=== PATIENT | female | born 1960 | race Caucasian/White ===

== ENCOUNTER → 2017-09-22 09:59 | Outpatient (CLI) | payer MEDICARE, BC ==
[~2017-09-22 09:59] MED LIST: BAYER CHEWABLE81 MG PO; COREG6.25 MG PO; LIPITOR80 MG PO
[2017-10-08 00:36] VITALS: BMI 27.9
== END | disposition home or self-care (01) ==
LOC: D.CT 09:59
DX: R05 Cough (principal)

== ENCOUNTER → 2017-09-25 13:37 | Outpatient (CLI) | payer MEDICARE, BC ==
[2017-10-08 00:36] VITALS: BMI 27.9
== END | disposition home or self-care (01) ==
LOC: D.CT 13:37
DX: R05 Cough (principal)

== ENCOUNTER 2017-10-07 07:09 | Inpatient (IN) | payer MEDICARE, BC ==
[~2017-10-07] VITALS: Ht 180.3 cm; Wt 90.9 kg
[2017-10-07] MEDS ORDERED: COREG6.25 MG PO ×2 (07:40→07:42)
[2017-10-07] MEDS ORDERED: LIPITOR80 MG PO (07:41)
[2017-10-07] MEDS ORDERED: BAYER CHEWABLE81 MG PO (07:41)
[2017-10-07 08:00] VITALS: BP 77/44; BMI 27.6
[2017-10-07 08:25] LABS: BASOPHILS 0.5 % (0-2); EOSINOPHILS 1.6 % (0-7); HEMATOCRIT 41.4 % (36.0-48.0); HEMOGLOBIN 13.2 g/dL (12-16); IMMATURE GRANULOCYTES 0.2 % (0-5); LYMPHOCYTES 37.1 % (15-50); MCH 27.4 pg (26.0-34.0); MCHC 31.9 g/dL (31.0-37.0); MCV 85.9 fL (80.0-100.0); MONOCYTES 4.5 % (2-11); NEUTROPHILS 56.1 % (40-80); PLATELET COUNT 245 10x3/uL (130-400); RBC 4.82 10x6/uL (4.00-5.40); RDW 14.3 % (11.5-14.5); WBC 8.2 10x3/uL (4.8-10.8)
[2017-10-07 08:38] LABS: ANION GAP 10.4 mmol/L (8-16); CALCIUM 8.8 mg/dL (8.5-10.1); CARBON DIOXIDE 25.7 mmol/L (21.0-32.0); CREATININE - SERUM 0.9 mg/dL (0.6-1.3); POTASSIUM - SERUM 4.1 mmol/L (3.5-5.1)
[2017-10-07 08:48] LABS: APTT 27.5 SECONDS (22.8-39.4); INR 1.01 (0.85-1.17); PROTIME 12.9 SECONDS (11.6-15.0)
[2017-10-07 20:00] VITALS: BP 102/48
[2017-10-08] VITALS: BP 103/50
[2017-10-08 00:36] VITALS: BP 102/48; Ht 180.3 cm; Wt 90.9 kg
[2017-10-08 04:00] VITALS: BP 129/62
[2017-10-08 07:56] LABS: HEMATOCRIT 38.1 % (36.0-48.0); HEMOGLOBIN 12.2 g/dL (12-16); LYMPHOCYTES 36.9 % (15-50); MCH 27.1 pg (26.0-34.0); MCV 84.5 fL (80.0-100.0); MEAN PLATELET VOLUME 10.6 fL (7.4-10.4); NEUTROPHILS 56.3 % (40-80); RBC 4.51 10x6/uL (4.00-5.40); RDW 14.1 % (11.5-14.5); WBC 8.2 10x3/uL (4.8-10.8)
[2017-10-08 08:02] LABS: PLATELET COUNT 188 10x3/uL (130-400)
[2017-10-08 08:07] LABS: APTT 27.2 SECONDS (22.8-39.4)
[2017-10-08 08:08] LABS: INR 1.06 (0.85-1.17); PROTIME 13.4 SECONDS (11.6-15.0)
[2017-10-08 08:24] LABS: ALBUMIN 3.1 g/dL (3.4-5.0); ALKALINE PHOSPHATASE 88 U/L (46-116); ALT (SGPT) 20 U/L (10-68); CALC OSMOLALITY 281 mosm/kg (275-300); CALCIUM 8.5 mg/dL (8.5-10.1); CARBON DIOXIDE 26.1 mmol/L (21.0-32.0); CHLORIDE - SERUM 107 mmol/L (98-107); CREATININE - SERUM 0.8 mg/dL (0.6-1.3); GLUCOSE 98 mg/dL (74-106); PHOSPHOROUS 3.2 mg/dL (2.5-4.9); POTASSIUM - SERUM 4.3 mmol/L (3.5-5.1); PROTEIN - SERUM 6.4 g/dL (6.4-8.2); SODIUM 141 mmol/L (136-145); UREA NITROGEN 14 mg/dL (7-18); eGFR NON AFRICAN AMERICAN 79 mL/min (90-120)
[2017-10-08 12:44] VITALS: BP 105/48
== END 2017-10-08 16:34 | disposition home or self-care (01) | DRG 201 ==
LOC: D.OPS 07:09 → D.CT 09:00 → D.OPS 09:00 → D.MS 19:41 → D.OPS 19:42 → D.MS 19:42
PROVIDERS: Specialist
PROC: 0W9930Z Drainage of Right Pleural Cavity with Drainage Device, Percutaneous Approach (ICD-10-PCS; 2017-10-07)
PROC: 0BBD3ZX Excision of Right Middle Lung Lobe, Percutaneous Approach, Diagnostic (ICD-10-PCS; principal; 2017-10-07 09:00)
DX: J95.811 Postprocedural pneumothorax (principal); R91.8 Other nonspecific abnormal finding of lung field; Y84.8 Other medical procedures as the cause of abnormal reaction of the patient, or of later complication, without mention of misadventure at the time of the procedure

== ENCOUNTER → 2017-10-20 13:15 | Outpatient (CLI) | payer MEDICARE, BC ==
[2017-10-08 00:36] VITALS: BMI 27.9
== END | disposition home or self-care (01) ==
LOC: D.MRI 13:15
DX: C34.11 Malignant neoplasm of upper lobe, right bronchus or lung (principal)

== ENCOUNTER → 2017-10-23 07:53 | Outpatient (CLI) | payer MEDICARE, BC ==
[2017-10-08 00:36] VITALS: BMI 27.9
== END | disposition home or self-care (01) ==
LOC: D.RT 07:53
DX: C34.11 Malignant neoplasm of upper lobe, right bronchus or lung (principal)

== ENCOUNTER → 2017-11-05 17:49 | Outpatient (CLI) | payer MEDICARE, BC ==
[2017-10-08 00:36] VITALS: BMI 27.9
== END | disposition home or self-care (01) ==
LOC: D.SP 10-07 09:00 → D.MAMMO 10-07 16:00
DX: Z12.31 Encounter for screening mammogram for malignant neoplasm of breast (principal)

== ENCOUNTER → 2017-11-12 12:13 | Outpatient (CLI) | payer MEDICARE, BC ==
[2017-10-08 00:36] VITALS: BMI 27.9
[~2017-11-12 12:13] MED LIST changes: +PLAVIX75 MG PO
== END | disposition home or self-care (01) ==
LOC: D.CT 10-30 10:00
DX: C34.11 Malignant neoplasm of upper lobe, right bronchus or lung (principal)

== ENCOUNTER 2017-11-16 05:10 | Inpatient (IN) | payer MEDICARE, BC ==
[2017-11-13 09:24] LABS: HEMOGLOBIN 12.9 g/dL (12-16); MCH 27.1 pg (26.0-34.0); MCHC 31.5 g/dL (31.0-37.0); MCV 86.1 fL (80.0-100.0); MEAN PLATELET VOLUME 11.7 fL (7.4-10.4); RBC 4.76 10x6/uL (4.00-5.40); RDW 14.7 % (11.5-14.5)
[2017-11-13 09:35] LABS: INR 0.97 (0.85-1.17); PROTIME 12.5 SECONDS (11.6-15.0)
[2017-11-13 09:40] LABS: ALBUMIN 3.6 g/dL (3.4-5.0); ANION GAP 13.2 mmol/L (8-16); BILIRUBIN - TOTAL 0.38 mg/dL (0.2-1.3); CALCIUM 8.6 mg/dL (8.5-10.1); CARBON DIOXIDE 26.4 mmol/L (21.0-32.0); CREATININE - SERUM 0.9 mg/dL (0.6-1.3); POTASSIUM - SERUM 3.6 mmol/L (3.5-5.1); PROTEIN - SERUM 7.2 g/dL (6.4-8.2)
[2017-11-13 10:26] LABS: APPEARANCE HAZY (CLEAR); BILIRUBIN NEGATIVE (NEGATIVE); COLOR YELLOW (YELLOW); GLUCOSE NEGATIVE (NEGATIVE); KETONE NEGATIVE (NEGATIVE); NITRITE NEGATIVE (NEGATIVE); PROTEIN NEGATIVE (NEGATIVE); SPECIFIC GRAVITY 1.015 (1.005-1.020); UROBILINOGEN NORMAL (NORMAL)
[2017-11-13 10:27] LABS: BACTERIA MODERATE /hpf (NONE SEEN); MUCUS <1+ /lpf (NONE SEEN); WHITE CELLS - URINE 0-5 /hpf (0-5)
[2017-11-16] VITALS (43 sets, daily range): BP systolic 90–120; BP diastolic 43–58; BMI 27.9
--- NOTE | ~2017-11-16 | HP ---
PATIENT: BRAD PAZ MEDICAL RECORD: [id number] ACCOUNT: [id number] LOCATION:[facility] : 64 ADMISSION DATE: 11/16/17 HISTORY AND PHYSICAL EXAMINATION NameBRAD PAZ (57yo, F) ID# [id number]. Date/Time11/05/2017 01:28IXQIB1962Service Dept.NPP_[facility] ClinicProviderEDSANDY STREETER MDInsuranceMed Primary: [place] ([place]) Insurance # : [id number] Referring Provider Name : DIXIE ABDALLA Employer Name : RETIRED Med Secondary: [place] (MEDICARE SUPPLEMENT) Insurance # : [id number] Employer Name : RETIRED Prescription: CMX - Member is eligible. Prescription: ID [employer] MEDICA[employer] ADMINISTRATION - Member is eligible. Chief Complaint Followup: Solitary nodule of lung S/P SUPRARENAL CONTROL OF AORTA & AORTIC ENDARTERECTOMY, AORTO BYFEMORAL RECONSTRUCTION OF AORTA 12/22/2000 RTC PET RESULTS, PREOP FOR PULM. RESECTION Patient's Care Team Referring Provider (): D[facility]ALL[facility], [address] [place] [id number], , Referring Provider: SONG SY MD: [address], [place] [address], , Primary Care Provider: DIXIE ABDALLA DO: [address] [place] [address], , Patient's Pharmacies [facility] (ERX): [facility] [address], , Vitals 11/05/2017 01:40 pm BP:138/86 sitting R armHR:68Ht:5 ft 11 inWt:200 lbs BMI:27.9Allergies Reviewed Allergies IODINATED CONTRAST- ORAL AND IV DYEPENICILLINSMedications Reviewed Medications Aspir-81 81 mg tablet,delayed release Take 1 tablet(s) every day by oral route.10/27/17 enteredKatadam Wilsonatorvastatin 80 mg /12/18 filledCaremarkcarvedilol 6.25 mg mdgaix90/08/18 filledCaremarkcephALEXin 500 mg capsule start filledKatadam Rodriguezclopidogrel 75 mg vhpuyc28/12/18 filledCaremarkProblems Reviewed Problems Solitary nodule of lung - Onset: 10/27/2017 Family History Reviewed Family History Maternal Grandmother- Malignant neoplastic diseaseSocial History Reviewed Social History Surgical History Reviewed Surgical History aorto bifem 2000 HISTORY AND PHYSICAL [id number] BRAD PAZ double coronary bypass 2007 appendix 2001 coronary artery stent 2016 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 HPI Lungs/Pleura Mass or Nodule Reported by patient. Symptoms: prior chest x-ray: normal film; no hoarseness; no fever Severity: improving Context: non-smoker right upper lobe carcinoma ROS Patient reports no fever, no night sweats, no significant weight gain, no significant weight loss, and no exercise intolerance. She reports no dry ey es, no irritation, and no vision change. She reports no difficulty hearing and no ear pain. She reports no frequent nosebleeds and no nose/sinus problems. She reports no sore throat, no bleeding gums, no snoring, no dry mouth, no mouth ulcers, no oral abn o rmalities, and no teeth problems. She reports no jugular vein distension and no swollen glands. She reports no chest pain, no arm pain on exertion, no shortness of breath when walking, no shortness of breath when lying down, no palpitations, and no known h eart murmur. She reports no cough, no wheezing, no shortness of breath, and no coughing up blood. She reports no abdominal pain, no vomiting, normal appetite, no diarrhea, not vomiting blood, no nausea, and no constipation. She reports no incontinence, no difficulty urinating, no hematuria, and no increased frequency. She reports no muscle aches, no muscle weakness, no arthralgias/joint pain, no back pain, and no swelling in the extremities. She reports no abnormal mole, no jaundice, and no rashes. She rep o rts no loss of consciousness, no weakness, no numbness, no seizures, no dizziness, and no headaches. She reports no depression, no sleep disturbances, feeling safe in relationship, and no alcohol abuse. She reports no fatigue. She reports no swollen gland s and no bruising. She reports no runny nose, no sinus pressure, no itching, no hives, and no frequent sneezing. ROS as noted in the HPI Physical Exam Patient is a 57-year-old female. Constitutional: General Appearance well nourished and developed and healthy-appearing. Level of Distress NAD. Ambulation ambulating normally. Cardiovascular: Apical Impulse not displaced or no thrill. Heart Auscultation HISTORY AND PHYSICAL [id number] EUDY,BRAD JOANIE normal s1 and s2; no murmurs, rubs, or gallops; and RRR. Arterial Pulses no abdominal aor ta bruits, femoral bruits, or popliteal bruits and 2+ bilateral, carotid 2+ bilateral, femoral 2+ bilateral, popliteal 2+ bilateral, and dorsalis pedis 2+ bilateral. Edema no edema or varicosities. Lungs: Repiratory Effort no dyspnea. Percussion no hyperr esonance or dullness or flatness. Auscultation no wheezing, rhonchi, or rales / crackles and breathing sounds normal, good air movement, and CTA except as noted. Abdomen: Bowl Sounds normal. Inspection and Palpation no tenderness, guarding, masses, or rebound tenderness and soft and non-distended. Liver non-tender and no hepatomegaly. Spleen non-tender and no splenomegaly. Hernia none palpable. Musculoskeletal System: Gait And Stance normal gait and stance. Digits and Nails normal nails and no cyanosis. Neurologic: Cranial Nerves grossly intact. Reflexes DTRs 2+ bilaterally throughout. Sensation grossly intact. Lymph Nodes: Lymph Nodes no cervical LAD, supraclavicular LAD, axillary LAD, or inguinal LAD. Eyes: Lids and Conjunctivae no discharge or pallor and non-injected. Pupils PERRLA. Cornea grossly intact. EOM EOMI. Lens clear. Sclera non-icteric. Neck: Neck no masses, enlarged lymph nodes, or carotid bruits and supple and trachea midline. Thyroid no enlargement or nodules and non-tender. Skin: Inspection and Palpation no rash, lesions, ulcers, jaundice, or abnormal nevi. Assessment / Plan right upper lobe lung mass no adenopathy 1. Solitary nodule of lung R91.1: Solitary pulmonary nodule Discussion Notes no adenopathy PET scan no adenopathy Right upper lobe lesion Discussed her disease process with her in detail as well as the alternative methods of treatment. We discussed pulmonary resection of her right lung including the expected benefi ts and risk which include bleeding, infection, stroke, , and the imponderables. She understands all the above and wishes to proceed with planned surgery. CATALINO STREETER MD at 1311 CC: [id number] DICTATION DATE: 11/05/17 1340 DISTRIBUTION CENTER MANAGER: CAROLINE 11/06/17 1237 PRE [address] [place] [id number] [place] [id number]
--- NOTE | ~2017-11-16 | OP ---
PATIENT NAME: BRAD PAZ MEDICAL RECORD: [id number] :64 [facility] AD[facility] DATE:11/16/17 SURGEON: CESAR HENDERSON MD DATE OF OPERATION: 11/16/2017 SURGEON: Cesar Henderson MD ANESTHESIA: General endotracheal, Rony Duron MD OPERATIONS PERFORMED: 1. Right upper lobe resection. 2. Right radical mediastinal lymphadenectomy. 3. Flexible fiberoptic bronchoscopy. PREOPERATIVE DIAGNOSIS: Non-small cell carcinoma, right upper lobe. POSTOPERATIVE DIAGNOSIS: Non-small cell carcinoma, right upper lobe. INDICATION FOR OPERATION: Carcinoma of right upper lobe. FINDINGS OF THE OPERATION: Carcinoma, right upper lobe, in the fissure at the confluence of minor and major fissure. The closest margin was 3 cm. This was between the upper lobe and fissure of the middle lobe. SPECIMENS: 1. Adhesions, right middle lobe to anterior mediastinum. 2. Adhesions, right upper lobe to anterior mediastinum. 3. Level 10 lymph node. 4. Level 4 lymph node. 5. Right upper lobe. 6. Level 7 lymph node. ESTIMATED BLOOD LOSS: 150 mL. After informed consent, adequate preoperative medication, and evaluation, the patient was brought to the operating room and placed on the table in supine position. After induction of general endotracheal anesthesia, application of appropriate monitoring devices, placement of a double lumen tube, and flexible fiberoptic bronchoscopy, the patient was prepped and draped in sterile field. A small posterolateral thoracotomy incision was made and dissection was carried down to the fascia. Hemostasis was maintained with electrocautery. The latissimus dorsi was divided. The serratus was retracted anteriorly and the fifth interspace was opened. The lung was deflated. There were dense adhesions between middle lobe and diaphragm as well as middle lobe to anterior mediastinum, and upper lobe to anterior mediastinum and posterior chest. These were all lysed with the Harmonic scalpel and hemostasis was assured. A biopsy was taken from the middle lobe to the adhesions to the diaphragm and a biopsy was taken of the upper lobe with adhesions to the mediastinum. Attention was then turned towards the hilum. A level 10 node was removed for exposure. The upper lobe bronchus was identified. The pulmonary arteries to the upper lobe were identified with sharp and blunt dissection. The anterior dissection was then carried out and the veins to the upper lobe were surrounded with a vessel OPERATIVE REPORT [id number] BRAD PAZ. After identifying all structures, the posterior fissure was developed with an Endo-VAL stapler. The pulmonary arteries to the upper lobe were then divided with an Endo-VAL stapler as well as the veins to the upper lobe. Then, utilizing sharp and blunt dissection, the upper lobe bronchus was identified and clamped. The lung was inflated to be able to see middle lobe and upper lobe fissure, which was not developed. Utilizing an Endo-VAL stapler and as much margin as possible from the tumor, the minor fissure was developed with an Endo-VAL stapler. Attention was then turned towards the bronchus and this was divided utilizing a TA 30-4.8 stapler and the upper lobe amputated and removed. Attention was then turned towards the lymph node dissection. Attention was turned towards azygous vein and superior vena cava and a level 4 large lymph node group was removed. Attention was then turned towards the level 8 and 9 nodes, which there were none in the inferior pulmonary ligament or the mediastinum. Attention was then turned towards the level 7 lymph node and a conglomeration of nodes were removed and sent to pathology as a separate specimen. Hemostasis was achieved. The chest was irrigated with copious amounts of sterile water and saline solution. Two #32 chest tubes were placed, one anteriorly and superiorly and one inferiorly and posteriorly. The chest was again irrigated. Instrument count and sponge count were correct times 2. The lung was reinflated. Checks for air leak revealed no significant leak. The chest was closed in layers utilizing #2 Vicryl pericostal sutures, #1 Vicryl on the muscle, 2-0 Vicryl on the subcutaneous tissue, and skin approximated with 3-0 subcuticular Vicryl. Sterile dressings were applied. The patient was turned in a supine position and underwent flexible fiberoptic bronchoscopy. There were no endobronchial lesions. There was good staple line to the upper lobe with good flow to middle and lower lobes. The patient was then awakened and transferred to the CV ICU in satisfactory condition. TRANSINT:[id number] Voice Confirmation ID: [id number] DOCUMENT ID: [id number] CESAR HENDERSON MD at 1407 CC: [id number] DICTATION DATE: 11/16/17 1241 AUDIO VISUAL PROJECT MANAGER: 11/16/17 1609 ADM IN [facility] [address] [place] [id number]
[2017-11-17] VITALS (88 sets, daily range): BP systolic 90–123; BP diastolic 5–53; BMI 28.0
[2017-11-17 06:22] LABS: HEMATOCRIT 35.7 % (36.0-48.0); HEMOGLOBIN 11.5 g/dL (12-16); MCH 27.4 pg (26.0-34.0); MCHC 32.2 g/dL (31.0-37.0); MCV 85.2 fL (80.0-100.0); MEAN PLATELET VOLUME 10.4 fL (7.4-10.4); RBC 4.19 10x6/uL (4.00-5.40); RDW 14.6 % (11.5-14.5); WBC 10.1 10x3/uL (4.8-10.8)
[2017-11-17 06:29] LABS: ALBUMIN 2.6 g/dL (3.4-5.0); ANION GAP 10.4 mmol/L (8-16); BILIRUBIN - TOTAL 1.08 mg/dL (0.2-1.3); CALCIUM 7.8 mg/dL (8.5-10.1); CARBON DIOXIDE 26.6 mmol/L (21.0-32.0); CREATININE - SERUM 0.9 mg/dL (0.6-1.3); PROTEIN - SERUM 5.7 g/dL (6.4-8.2)
[2017-11-18] VITALS (74 sets, daily range): BP systolic 90–136; BP diastolic 30–58
[2017-11-18 06:40] LABS: HEMATOCRIT 32.8 % (36.0-48.0); HEMOGLOBIN 9.8 g/dL (12-16); MCH 26.7 pg (26.0-34.0); MCHC 29.9 g/dL (31.0-37.0); MEAN PLATELET VOLUME 10.5 fL (7.4-10.4); RBC 3.67 10x6/uL (4.00-5.40); WBC 10.1 10x3/uL (4.8-10.8)
[2017-11-18 06:43] LABS: MCV 89.4 fL (80.0-100.0)
[2017-11-18 07:08] LABS: ALBUMIN 2.1 g/dL (3.4-5.0); ANION GAP 8.6 mmol/L (8-16); BILIRUBIN - TOTAL 0.9 mg/dL (0.2-1.3); CALCIUM 7.7 mg/dL (8.5-10.1); CARBON DIOXIDE 27.6 mmol/L (21.0-32.0); CREATININE - SERUM 0.9 mg/dL (0.6-1.3); POTASSIUM - SERUM 4.2 mmol/L (3.5-5.1); PROTEIN - SERUM 5.3 g/dL (6.4-8.2)
[2017-11-19] VITALS (59 sets, daily range): BP systolic 90–139; BP diastolic 39–57
[2017-11-19 06:28] LABS: HEMATOCRIT 33.4 % (36.0-48.0); HEMOGLOBIN 10.3 g/dL (12-16); MCHC 30.8 g/dL (31.0-37.0); MCV 87.7 fL (80.0-100.0); MEAN PLATELET VOLUME 10.2 fL (7.4-10.4); RBC 3.81 10x6/uL (4.00-5.40); RDW 14.7 % (11.5-14.5); WBC 9.2 10x3/uL (4.8-10.8)
[2017-11-19 07:10] LABS: ALKALINE PHOSPHATASE 63 U/L (46-116); ALT (SGPT) 18 U/L (10-68); BILIRUBIN - TOTAL 0.57 mg/dL (0.2-1.3); CALC OSMOLALITY 271 mosm/kg (275-300); CARBON DIOXIDE 23.2 mmol/L (21.0-32.0); CHLORIDE - SERUM 105 mmol/L (98-107); CREATININE - SERUM 0.8 mg/dL (0.6-1.3); GLUCOSE 111 mg/dL (74-106); POTASSIUM - SERUM 4.4 mmol/L (3.5-5.1); PROTEIN - SERUM 5.8 g/dL (6.4-8.2); SODIUM 136 mmol/L (136-145); UREA NITROGEN 11 mg/dL (7-18); eGFR NON AFRICAN AMERICAN 79 mL/min (90-120)
[2017-11-20] VITALS (96 sets, daily range): BP systolic 81–172; BP diastolic 35–597
[2017-11-21] VITALS (91 sets, daily range): BP systolic 71–139; BP diastolic 24–60
[2017-11-21 06:02] LABS: HEMATOCRIT 29.9 % (36.0-48.0); HEMOGLOBIN 9.5 g/dL (12-16); MCH 27.2 pg (26.0-34.0); MCHC 31.8 g/dL (31.0-37.0); MEAN PLATELET VOLUME 10.6 fL (7.4-10.4); RBC 3.49 10x6/uL (4.00-5.40); RDW 14.6 % (11.5-14.5)
[2017-11-21 06:03] LABS: MCV 85.7 fL (80.0-100.0); WBC 6.8 10x3/uL (4.8-10.8)
[2017-11-21 06:21] LABS: ALBUMIN 1.9 g/dL (3.4-5.0); ALKALINE PHOSPHATASE 72 U/L (46-116); ALT (SGPT) 22 U/L (10-68); BILIRUBIN - TOTAL 0.49 mg/dL (0.2-1.3); CALC OSMOLALITY 266 mosm/kg (275-300); CALCIUM 8.3 mg/dL (8.5-10.1); CHLORIDE - SERUM 102 mmol/L (98-107); CREATININE - SERUM 0.7 mg/dL (0.6-1.3); GLUCOSE 106 mg/dL (74-106); SODIUM 134 mmol/L (136-145); UREA NITROGEN 10 mg/dL (7-18); eGFR NON AFRICAN AMERICAN > 90 mL/min (90-120)
[2017-11-22] VITALS (76 sets, daily range): BP systolic 71–134; BP diastolic 30–60
[2017-11-23] VITALS (20 sets, daily range): BP systolic 90–151; BP diastolic 39–75
[2017-11-23 06:33] LABS: HEMOGLOBIN 8.5 g/dL (12-16); MCH 26.9 pg (26.0-34.0); MCHC 31.5 g/dL (31.0-37.0); MCV 85.4 fL (80.0-100.0); MEAN PLATELET VOLUME 10.6 fL (7.4-10.4); RBC 3.16 10x6/uL (4.00-5.40); RDW 14.5 % (11.5-14.5); WBC 5.9 10x3/uL (4.8-10.8)
[2017-11-23 06:41] LABS: CALC OSMOLALITY 277 mosm/kg (275-300); CALCIUM 8.2 mg/dL (8.5-10.1); CARBON DIOXIDE 24.4 mmol/L (21.0-32.0); CHLORIDE - SERUM 106 mmol/L (98-107); CREATININE - SERUM 0.7 mg/dL (0.6-1.3); GLUCOSE 100 mg/dL (74-106); POTASSIUM - SERUM 3.4 mmol/L (3.5-5.1); SODIUM 139 mmol/L (136-145); UREA NITROGEN 12 mg/dL (7-18); eGFR NON AFRICAN AMERICAN > 90 mL/min (90-120)
[2017-11-23] MEDS ORDERED: HEMOCYTE PLUS C1 CAP PO (09:31)
[2017-11-23] MEDS ORDERED: PERCOCET 5-3251 TAB PO (09:32)
== END 2017-11-23 12:34 | disposition home or self-care (01) | DRG 163 ==
LOC: D.CVICU 05:10 → D.SDCHOLD 05:10 → D.CVICU 08:57
PROVIDERS: Internal Medicine Cardiovascular Disease
PROC: 07B70ZZ Excision of Thorax Lymphatic, Open Approach (ICD-10-PCS; 2017-11-16)
PROC: 0BBD0ZZ Excision of Right Middle Lung Lobe, Open Approach (ICD-10-PCS; principal; 2017-11-16 07:30)
PROC: 0BBC0ZZ Excision of Right Upper Lung Lobe, Open Approach (ICD-10-PCS; 2017-11-16 07:30)
DX: C34.11 Malignant neoplasm of upper lobe, right bronchus or lung (principal); J98.59 Other diseases of mediastinum, not elsewhere classified; J95.812 Postprocedural air leak; J98.4 Other disorders of lung; I10 Essential (primary) hypertension; E78.5 Hyperlipidemia, unspecified; Y83.8 Other surgical procedures as the cause of abnormal reaction of the patient, or of later complication, without mention of misadventure at the time of the procedure

== ENCOUNTER → 2017-11-26 09:42 | Outpatient (CLI) | payer MEDICARE, BC ==
[2017-11-17 09:15] VITALS: BMI 28.0
[~2017-11-26 09:42] MED LIST changes: +HEMOCYTE PLUS C1 CAP PO; +PERCOCET 5-3251 TAB PO
[2017-11-26 10:07] LABS: HEMATOCRIT 32.4 % (36.0-48.0); HEMOGLOBIN 10.4 g/dL (12-16); MCH 27.4 pg (26.0-34.0); MCHC 32.1 g/dL (31.0-37.0); MCV 85.5 fL (80.0-100.0); MEAN PLATELET VOLUME 10.4 fL (7.4-10.4); RBC 3.79 10x6/uL (4.00-5.40); RDW 14.7 % (11.5-14.5); WBC 7.5 10x3/uL (4.8-10.8)
== END | disposition home or self-care (01) ==
LOC: D.LAB 09:42
PROVIDERS: Internal Medicine Cardiovascular Disease
DX: D64.9 Anemia, unspecified (principal)

== ENCOUNTER → 2017-12-10 12:06 | Outpatient (CLI) | payer MEDICARE, BC ==
[2017-11-17 09:15] VITALS: BMI 28.0
[2017-12-10 12:47] LABS: HEMATOCRIT 38.4 % (36.0-48.0); HEMOGLOBIN 12.1 g/dL (12-16); MCH 27.3 pg (26.0-34.0); MCHC 31.5 g/dL (31.0-37.0); MCV 86.5 fL (80.0-100.0); MEAN PLATELET VOLUME 10.5 fL (7.4-10.4); RBC 4.44 10x6/uL (4.00-5.40); RDW 14.9 % (11.5-14.5); WBC 8.6 10x3/uL (4.8-10.8)
== END | disposition home or self-care (01) ==
LOC: D.RAD 11:15
PROVIDERS: Internal Medicine Cardiovascular Disease
DX: D64.9 Anemia, unspecified (principal)

== ENCOUNTER → 2018-05-25 13:06 | Outpatient (CLI) | payer MEDICARE, BC ==
[2017-11-17 09:15] VITALS: BMI 28.0
== END | disposition home or self-care (01) ==
LOC: D.CT 13:06
DX: C34.90 Malignant neoplasm of unspecified part of unspecified bronchus or lung (principal)

== ENCOUNTER 2018-09-17 08:00 | Outpatient (CLI) | payer MEDICARE, BC ==
[2017-11-17 09:15] VITALS: BMI 28.0
== END 2018-09-17 09:00 | disposition home or self-care (01) ==
LOC: D.MAMMO 08:00
DX: R92.8 Other abnormal and inconclusive findings on diagnostic imaging of breast (principal)

== ENCOUNTER → 2018-10-13 08:28 | Outpatient (CLI) | payer MEDICARE, BC ==
[2017-11-17 09:15] VITALS: BMI 28.0
== END | disposition home or self-care (01) ==
LOC: D.US 08:28
DX: N63.14 Unspecified lump in the right breast, lower inner quadrant (principal)

== ENCOUNTER → 2018-11-23 09:46 | Outpatient (CLI) | payer MEDICARE, BC ==
[2017-11-17 09:15] VITALS: BMI 28.0
== END | disposition home or self-care (01) ==
LOC: D.CT 09:46
PROVIDERS: ATTEND Internal Medicine Cardiovascular Disease
DX: Z98.890 Other specified postprocedural states (principal); J98.51 Mediastinitis

== ENCOUNTER → 2019-02-14 07:24 | Outpatient (CLI) | payer MEDICARE, BC ==
[2017-11-17 09:15] VITALS: BMI 28.0
== END | disposition home or self-care (01) ==
LOC: D.CT 07:24
PROVIDERS: ATTEND Internal Medicine Hematology & Oncology
DX: C34.11 Malignant neoplasm of upper lobe, right bronchus or lung (principal); C83.00 Small cell B-cell lymphoma, unspecified site

== ENCOUNTER 2019-03-21 05:23 | Day surgery (SDC) | payer MEDICARE, BC ==
[~2019-03-21] VITALS: Ht 180.3 cm; Wt 91.2 kg
--- NOTE | ~2019-03-21 | OP ---
PATIENT NAME: BRAD PAZ MEDICAL RECORD: [id number] :64 LOCATION:D[facility] ADMISSION DATE: SURGEON: CATALINO HENDERSON MD DATE OF OPERATION: 03/21/2019 SURGEON: Catalino Henderson MD ANESTHESIA: General, Dr. Alcocer. OPERATION PERFORMED: Mediastinoscopy with biopsies. PREOPERATIVE DIAGNOSES: Mediastinal adenopathy, history of lymphoma. POSTOPERATIVE DIAGNOSES: Mediastinal adenopathy, history of lymphoma. INDICATION FOR OPERATION: Enlarging mediastinal adenopathy. FINDINGS OF THE OPERATION: Mediastinal adenopathy, frozen section demonstrated to have benign appearing lymph node. ESTIMATED BLOOD LOSS: Less than 3 cc. DESCRIPTION OF PROCEDURE: After informed consent, adequate preoperative medication evaluation, the patient was brought to the operating room, placed on the table in the supine position. After induction of general endotracheal anesthesia and application of appropriate monitoring devices, the patient's chest and neck were prepped in a sterile field, utilizing Betadine scrub, alcohol, and Betadine solution. A Betadine-impregnated drape was also used. A small transverse incision was made 2 cm above the sternal notch. Dissection carried down the fascia. Hemostasis was maintained with electrocautery. The midline muscles were divided and the pretracheal fascia entered. The scope was then placed and utilizing sharp and blunt dissection, the scope was advanced to the sherry. Upon withdrawing the scope approximately 2 cm, the pretracheal lymph node was dissected free anteriorly and aspirated. No bleeding. The biopsies were taken from this pretracheal lymph node. Attention was then turned toward the right paratracheal area where a right paratracheal node was biopsied. These were sent to pathology as permanent sections. The neck was irrigated. Instrument count and sponge count were correct times 2. Neck was closed in layers utilizing 3-0 Vicryl on the platysma, 5-0 subcuticular Monocryl on the skin. Sterile dressings were applied. The patient tolerated the procedure well and was transferred to recovery room in satisfactory condition. TRANSINT:[id number] Voice Confirmation ID: [id number] DOCUMENT ID: [id number] CATALINO HENDERSON MD CC: [id number] DICTATION DATE: 03/21/19 1347 VIDEO MANAGER: 03/21/19 [address] [id number] [place] [address]
[2019-03-21 05:50] LABS: BASOPHILS 0.8 % (0-2); EOSINOPHILS 1.8 % (0-7); HEMATOCRIT 41.2 % (36.0-48.0); HEMOGLOBIN 13.3 g/dL (12-16); IMMATURE GRANULOCYTES 0.2 % (0-5); LYMPHOCYTES 48.9 % (15-50); MCHC 32.3 g/dL (31.0-37.0); MCV 83.6 fL (80.0-100.0); MEAN PLATELET VOLUME 10.8 fL (7.4-10.4); MONOCYTES 4.7 % (2-11); NEUTROPHILS 43.6 % (40-80); PLATELET COUNT 244 10x3/uL (130-400); RBC 4.93 10x6/uL (4.00-5.40); RDW 14.5 % (11.5-14.5); WBC 8.7 10x3/uL (4.8-10.8)
[2019-03-21 05:52] LABS: APPEARANCE CLEAR (CLEAR); BILIRUBIN NEGATIVE (NEGATIVE); COLOR YELLOW (YELLOW); GLUCOSE NEGATIVE (NEGATIVE); KETONE NEGATIVE (NEGATIVE); NITRITE NEGATIVE (NEGATIVE); PROTEIN NEGATIVE (NEGATIVE); SPECIFIC GRAVITY 1.015 (1.005-1.020); UROBILINOGEN NORMAL (NORMAL)
[2019-03-21 06:07] LABS: ALBUMIN 3.4 g/dL (3.4-5.0); ANION GAP 12.2 mmol/L (8-16); BILIRUBIN - TOTAL 0.55 mg/dL (0.2-1.3); CALCIUM 8.9 mg/dL (8.5-10.1); INR 1.02 (0.85-1.17); POTASSIUM - SERUM 4.2 mmol/L (3.5-5.1); PROTEIN - SERUM 7.6 g/dL (6.4-8.2); PROTIME 12.9 SECONDS (11.6-15.0)
[2019-03-21 06:08] LABS: APTT 26.7 SECONDS (22.8-39.4)
[2019-03-21] MEDS ORDERED: NORVASC5 MG PO (07:15)
[2019-03-21 07:23] VITALS: BP 75/51; Ht 180.3 cm; Wt 91.2 kg
[2019-03-21] MEDS ORDERED: ULTRAM50 MG PO (13:48)
== END 2019-03-21 16:10 | disposition home or self-care (01) ==
LOC: D.OPS 05:23
PROVIDERS: ATTEND Internal Medicine Cardiovascular Disease
DX: R59.0 Localized enlarged lymph nodes (principal); Z85.72 Personal history of non-Hodgkin lymphomas; Z01.812 Encounter for preprocedural laboratory examination